=== PATIENT | female | born 1995 | race Caucasian/White ===

== ENCOUNTER → 2017-04-09 | Outpatient (CLI) | payer BC ==
--- NOTE | 2017-04-09 16:36 | DIAGNOSTIC IMAGING REPORT ---
LUMBAR SPINE MIN 4 VIEWS HISTORY: 21 years-old Female LOWER BACK PAIN acute low back pain with recent trauma COMPARISON: None available TECHNIQUE: 5 views of the lumbar spine FINDINGS: Only four nonrib-bearing lumbar type vertebral segments are present with hypoplastic ribs at T12. Limbus vertebra noted at the caudal-most vertebral body which will be referred to as L4. No spondylolysis or spondylolisthesis. No acute fracture or subluxation identified. No significant degenerative changes. IMPRESSION: 1. No acute fracture or subluxation. 2. No spondylolysis or spondylolisthesis. 3. Only four nonrib-bearing lumbar type vertebral segments are present with hypoplastic ribs at T12. The above report was generated using voice recognition software. It may contain grammatical, syntax or spelling errors. Electronically signed by: Nicholas Amor M.D. 04/09/2017 4:35 PM Dictated Date/Time: 04/09/2017 4:32 PM
== END | disposition home or self-care (01) ==
LOC: C.RDSM 11:00
PROVIDERS: ATTEND Internal Medicine
DX: M54.5 Low back pain (principal)

== ENCOUNTER → 2017-05-14 | Outpatient (CLI) | payer BC, OTHER ==
--- NOTE | 2017-05-14 18:09 | DIAGNOSTIC IMAGING REPORT ---
LUMBAR SPINE MRI HISTORY: LUMBAR PAIN TECHNIQUE: Multiplanar multisequence MRI of the lumbar spine was performed without the use of contrast. COMPARISON: Lumbar spine 04/09/2017. FINDINGS: For the purpose of the report the L5-S1 disc space will be located on axial image 23 of 25. Alignment and curvature are intact. No fractures within the lumbar spine. Paraspinal soft tissues are unremarkable. No disc herniations. Disc spaces are preserved. The conus terminates at the L2 level. L1-L2: No significant central canal or neural foraminal narrowing. L2-L3: No significant central canal or neural foraminal narrowing. L3-L4: No significant central canal or neural foraminal narrowing. L4-L5: No significant central canal or neural foraminal narrowing. L5-S1: No significant central canal or neural foraminal narrowing. IMPRESSION: Normal lumbar spine MRI. Electronically signed by: Jonathan Mejias M.D. 05/14/2017 6:07 PM Dictated Date/Time: 05/14/2017 5:59 PM
== END | disposition home or self-care (01) ==
LOC: C.MRI 17:30
PROVIDERS: ATTEND Internal Medicine
DX: M54.5 Low back pain (principal)

== ENCOUNTER → 2017-06-13 | Outpatient (CLI) | payer BC, OTHER ==
--- NOTE | 2017-06-13 15:07 | DIAGNOSTIC IMAGING REPORT ---
BONE SCAN SPECT CLINICAL HISTORY: 21 years-old Female presenting with LUMBAR PAIN. TECHNIQUE: Planar anterior and posterior imaging of the lumbar spine was performed 3 hours following the intravenous administration of 26 mCi Tc-99m MDP. SPECT imaging was also performed. COMPARISON: Lumbar spine MR from 05/14/2017 and plain radiographs from 04/09/2017. FINDINGS: Normal radiotracer distribution throughout the lumbar spine, visualized ribs, and visualized portion of the pelvis. Faint radiotracer uptake in the kidneys, expected distribution. No abnormal focal radiotracer within the lumbar spine. IMPRESSION: 1. Normal bone scan of the lumbar spine. Electronically signed by: Artur Arroyo M.D. 06/13/2017 3:05 PM Dictated Date/Time: 06/13/2017 3:02 PM
== END | disposition home or self-care (01) ==
LOC: C.NUCL 10:34
PROVIDERS: ATTEND Internal Medicine
DX: M54.5 Low back pain (principal)